=== PATIENT | male | born 1965 ===

== ENCOUNTER 2021-04-13 08:00 | Day surgery (SDC) | payer OTHER ==
[~2021-04-13 08:00] MED LIST: LIPITOR20 M1 PO; LOSARTAN POTASS50 MG PO
[2021-04-13 11:25] VITALS: BP 124/83
== END 2021-04-13 11:35 | DRG 392 ==
LOC: ENDO 08:00 → ORM 08:00 → ENDO 08:10
PROVIDERS: ATTEND Surgery
PROC: 0DJD8ZZ Inspection of Lower Intestinal Tract, Via Natural or Artificial Opening Endoscopic (ICD-10-PCS; principal; 2021-04-13)
DX: R19.4 Change in bowel habit (principal); R10.11 Right upper quadrant pain; I10 Essential (primary) hypertension; Z80.0 Family history of malignant neoplasm of digestive organs